=== PATIENT | female | born 1945 | race Caucasian/White ===

== ENCOUNTER 2021-01-29 09:35 | Day surgery (SDC) | payer MEDICARE ==
[~2021-01-29 09:35] MED LIST: IBUP800 PO; LEVFLO500 PO; OXYACE5T PO
== END 2021-01-29 23:22 | disposition home or self-care (01) ==
LOC: MOI US 09:35
DX: N63.24 Unspecified lump in the left breast, lower inner quadrant (principal); E03.9 Hypothyroidism, unspecified; E78.5 Hyperlipidemia, unspecified; K21.9 Gastro-esophageal reflux disease without esophagitis; I10 Essential (primary) hypertension; R59.0 Localized enlarged lymph nodes; N95.1 Menopausal and female climacteric states; R01.1 Cardiac murmur, unspecified
CPT/HCPCS: 19083; 38505; 76942; 77065; 88305; 88360; A4648

== ENCOUNTER 2021-03-02 08:25 | Day surgery (SDC) | payer MEDICARE ==
[~2021-03-02 08:25] MED LIST changes: +HYDCHL25 PO; +LEVSOD75 PO; +LISI20 PO; +VITAMIN D310 MC4 PO; +ZOCOR20 MG PO
--- NOTE | 2021-03-02 10:08 | NUR ---
Ambulatory in Day Surgery Surgical site prepped with 2% Chlorhexidine cloth wipe. History, Chart, Medications and Allergies reviewed before start of procedure.Lungs clear T/O to Auscultation. Patient confirms NPO status and agrees with scheduled surgery. ALL BELONINGS PLACED UNDER BED.
--- NOTE | 2021-03-02 12:21 | NUR ---
Patient up to Ambulate independently. Gait steady. Discharge instructions reviewed with patient. Patient verbalizes understanding. Copy given to patient to take home. Dressing to procedure site clean, dry, intact with no visible drainage, swelling, erythema or bruising noted. Patient States Post-Procedure ride home has been arranged. Discharged via wheelchair to private car for ride home. ALL BELONGINGS AND MEDIPOT INFORMATION PROVIDED.
== END 2021-03-02 12:34 | disposition home or self-care (01) ==
LOC: ORSCMMR 08:25 → ORD 10:00 → ORSCMMR 12:34
PROVIDERS: Surgery
PROC: B543ZZA Ultrasonography of Right Jugular Veins, Guidance (ICD-10-PCS; principal; 2021-03-02 10:00)
PROC: 05HM33Z Insertion of Infusion Device into Right Internal Jugular Vein, Percutaneous Approach (ICD-10-PCS; principal; 2021-03-02 10:00)
DX: C50.912 Malignant neoplasm of unspecified site of left female breast (principal); C77.3 Secondary and unspecified malignant neoplasm of axilla and upper limb lymph nodes; I10 Essential (primary) hypertension; K21.9 Gastro-esophageal reflux disease without esophagitis; E03.9 Hypothyroidism, unspecified; Z79.899 Other long term (current) drug therapy
CPT/HCPCS: 77001; C1788; J0690; J1100; J1642; J2250; J2370; J2405; J2704; J3010; J7120